=== PATIENT | male | born 1985 | race Caucasian/White ===

== ENCOUNTER → 2020-04-22 11:00 | Outpatient (CLI) | payer OTHER, SELFPAY ==
--- NOTE | ~2020-04-22 | XR_ITS ---
EXAMINATION: XR chest 2V EXAM DATE: 04/22/2020 11:17 INDICATION: R50.9 - Fever, unspecified . TECHNIQUE: Frontal and lateral projections of the chest obtained and reviewed. There is no prior eleuterio dy for comparison. FINDINGS: The lungs are clear. There are no pleural effusions. The cardiomediastinal silhouette is within normal limits. There is no pneumothorax suspected. The bones and soft tissues are unremarkab le. IMPRESSION: Normal chest x-ray exam. Reviewed, dictated and finalized at location B. BOX SPOTTER IMPRESSION: Normal chest x-ray exam.
== END ==
PROVIDERS: PCP Family Medicine; Visit Provider Family Medicine
DX: R50.9 Fever, unspecified (principal)
CPT/HCPCS: 71046

== ENCOUNTER → 2021-01-14 09:06 | Outpatient (CLI) | payer OTHER, SELFPAY ==
--- NOTE | ~2021-01-14 | XR_ITS ---
EXAMINATION: XR elbow LT min 3V DATE: 01/14/2021 09:20 INDICATION: Left elbow pain TECHNIQUE: Anteroposterior, two oblique and lateral views of the left elbow were obtained. COMPARISON: None. FINDINGS: Alignment is normal. No fracture or joint effusion. Joint spaces are normal. Soft tissues are unremar kable. IMPRESSION: 1. Negative left elbow radiographs. Reviewed, dictated and finalized at location A.
== END ==
PROVIDERS: PCP Family Medicine; Visit Provider Nurse Practitioner Family
DX: M25.522 Pain in left elbow (principal)
CPT/HCPCS: 73080

== ENCOUNTER → 2021-09-02 13:31 | Outpatient (CLI) | payer OTHER, SELFPAY ==
--- NOTE | ~2021-09-02 | XR_ITS ---
EXAMINATION: XR chest 2V 09/02/2021 13:40 INDICATION: Tobacco use. PROCEDURE: 2 view chest COMPARISON: 04/22/2020 FINDINGS: The lungs are clear. The cardiomediastinal silhouette is within normal limits. There are no pleural effusions. There is no pneumothorax suspected. The lungs are hyperinflated which is cons istent with, but not diagnostic of chronic obstructive pulmonary disease. IMPRESSION: 1: NO ACUTE CARDIOPULMONARY DISEASE. Reviewed, dictated and finalized at location B.
== END ==
PROVIDERS: PCP Family Medicine; Visit Provider Physician Assistant Medical
DX: Z72.0 Tobacco use (principal)
CPT/HCPCS: 71046

== ENCOUNTER 2021-10-08 08:06 | Outpatient (CLI) | payer OTHER, SELFPAY ==
--- NOTE | 2021-10-13 20:06 | WPDPFTINT ---
PFT Procedure Performed PFT Procedure Performed Spirometry with Pre/Post Bronchodilator Plethysmography (Lung Vol) Diffusing Cap (DLCO) Flow Vol Loop PFT Interpretation DOS: 10/08/2021 REQUESTING: ETHEL Ascencio REASON FOR TESTING: Other specified symptoms involving respiratory; dyspnea on exertion PULMONARY FUNCTION TESTS Results are not reliable for the lung volumes as the patient was not able to perform the maneuver correctly after 6 attempts. Spirometry: Pre-bronchodilator FEV1 is 104%, 4.51 L, normal. FVC is 116%, 6.18 L, normal. FEV1/FVC ratio is 73%, normal. After bronchodilator administration there is a non statistically significant change. Lung volumes: Total lung capacity is 82% predicted, 5.68 L, normal. Functional reserve capacity is 65% predicted, 2.24 L, normal. Inspiratory apacity is 100%, normal. Residual volume is not reportable due to in ability for patient to perform testing. Diffusion: DLCO is 104%, normal. Flow volume loop: Nonspecific artifact in the flow volume loop that is noted on 4 of 5 attempts. Trial number 2 is normal. IMPRESSION: Normal spirometry without airflow obstruction, normal total lung capacity which excludes restriction, and normal diffusion. The patient was not able to perform maneuver to obtain ERV and RV. RV is used to determine if air trapping is present. Without airflow obstruction or hyperinflation, air trapping is unlikely to be present. Clinical correlation is recommended. Kristine Driver MD
== END 2021-10-08 08:07 | disposition home or self-care (01) ==
PROVIDERS: PCP Family Medicine; Visit Provider Physician Assistant Medical
DX: R09.89 Other specified symptoms and signs involving the circulatory and respiratory systems (principal); Z72.0 Tobacco use
CPT/HCPCS: 94060; 94726; 94729

== ENCOUNTER 2023-03-01 14:44 | Outpatient (CLI) | payer OTHER, SELFPAY ==
--- NOTE | 2023-03-01 14:54 | ECHO_ITS ---
Patient Info Name: Rafa Doran Age: 37 years : 1985 Gender: Male Ht: 71 in Wt: 180 lbs BSA: 2.03 m2 HR: 79 bpm BP: 148 / 107 mmHg Heart Rhythm: Sinus Rhythm Technical Quality: Fair Exam Date: 03/01/2023 3:06 PM Exam Location: [facility] Pulmonary Patient Status: Outpatient Admit Date: 03/01/2023 Staff Ordering Physician: Jaylen Irving NP Etch Operator [employer] W[employer]: Kaur Fischer RDCS Attending Provider: Jaylen Irving NP Referring Physician: Aristides BELTRÁN; Exam Type: CA echo doppler color flow Study Info Indications R06.02 - Shortness of breath Complete two-dimensional, color flow and Doppler transthoracic echocardiogram is performed. Summary 1. Complete two-dimensional, color flow and Doppler transthoracic echocardiogram is performed. 2. Left ventricular chamber dimension is normal. 3. Left ventricular systolic function is normal, estimated at 60-65%. 4. The left ventricular diastolic function is normal. 5. E/e' 7 is not elevated. 6. There is trace mitral valve regurgitation. 7. There is trace tricuspid valve regurgitation. 8. No pulmonary hypertension, estimated pulmonary arterial systolic pressure is 18 mmHg. Left Ventricle E/e' 7 is not elevated. Left ventricular chamber dimension is normal. Left ventricular systolic function is normal, estimated at 60-65%. The left ventricular diastolic function is normal. Right Ventricle Right ventricular systolic function is normal and with normal TAPSE 1.9 cm. Right ventricular chamber dimension is normal. Left Atria Left atrial chamber dimension is normal. Right Atria Right atrial chamber dimension is normal. Aortic Valve The aortic valve is trileaflet. There is no aortic valve stenosis. There is no aortic valve regurgitation. Pulmonic Valve There is no pulmonic regurgitation. Mitral Valve There is no mitral valve stenosis. There is trace mitral valve regurgitation. Tricuspid Valve There is trace tricuspid valve regurgitation. No pulmonary hypertension, estimated pulmonary arterial systolic pressure is 18 mmHg. Pericardium/Pleural There is no pericardial effusion. Inferior Vena Cava Normal inferior vena cava with >50% collapse upon inspiration consistent with normal right atrial pressure, 5 mmHg. Aorta The aortic root size at the sinus of Valsalva is normal. Left Ventricular Outflow Tract Name Value Normal LVOT 2D LVOT Diameter 2.1 cm LVOT Doppler LVOT Peak Gradient 4 mmHg LVOT Mean Gradient 2 mmHg LVOT VTI 17 cm LVOT VTI/AV VTI Ratio 0.8 LVOT Stroke Volume 61 ml LVOT CO 4.6 l/min LVOT CI 2.3 l/min/m2 Pulmonic Valve Name Value Normal RVOT Doppler RVOT Peak Gradient 2 mmHg PV Doppler
== END 2023-03-01 14:45 | disposition home or self-care (01) ==
PROVIDERS: PCP Family Medicine; Visit Provider Nurse Practitioner Family
DX: R06.02 Shortness of breath (principal); R53.83 Other fatigue; Z82.49 Family history of ischemic heart disease and other diseases of the circulatory system
CPT/HCPCS: 93306

== ENCOUNTER 2023-07-05 09:43 | Outpatient (CLI) | payer OTHER, SELFPAY ==
--- NOTE | 2023-07-25 15:27 | WPDSLEEPSTUD ---
Sleep Study Date of Study: 07/05/23 Ordering Provider: Vy Miranda DO Interpreting Physician: Vy Miranda DO Sleep Study Type: Polysomnogram Height: 1.8 m Weight: 81.647 kg Body Mass Index: 25.1 Neck Circumference (inches): 18 [place]: 9 Reason for Sleep Study CPAP Titration 01/08/2004 Optimal pressure of CPAP 15 cm H2O. No baseline study available. WatchPAT HST 09/07/2021: AHI of 3.5 (4% criteria) or 4.3 (3% criteria) with desaturation down to 91%. PSG 10/15/21 : Overall AHI of 18 with desaturation down to 80%. GUTIERREZ of 0.9. Set up with dental appliance. Patient couldn't tolerate the MAD device or CPAP. Interested in Inspire. Sleep History The patient is a 37-year-old male with arthralgia, erectile dysfunction, back pain, history of tobacco use and previous diagnosis of sleep apnea that had a sleep study ordered for evaluation of the Inspire device. The patient denies awakening from sleep short of breath. He frequently awakens at night with heartburn, belching or cough. He frequently snores and is frequently loud enough that others complain. He denies having trouble sleeping when he has a cold. He denies waking up gasping for air throughout the night. He frequently has breathing problems at night observed by himself or others. He denies sweating excessively at night. He denies having heart palpitations or irregular heartbeats during the night. He occasionally falls asleep during the day but never while driving. He constantly has trouble at school or work due to sleepiness. He denies sleep paralysis and hypnagogic/ hypnopompic hallucinations. He denies feeling afraid of going to sleep. He denies having nightmares. He denies remembering his dreams. He occasionally has thoughts racing through his mind. He frequently feels sad or depressed. He rarely has anxiety. He denies having muscular tension. He denies noticing parts of his body jerk. He denies kicking during the night. He rarely has crawling and aching feelings in his legs and denies having leg pain during. He denies grinding his teeth during sleep and denies awakening with morning jaw pain. He denies being bothered by pain during the day and denies being awakened by pain during the night. He denies waking up feeling stiff in the morning. He denies waking up with sore or achy muscles. He denies waking up with pain in the neck, spine and other joints. He goes to bed at 10:00 p.m. on both weekdays and weekends. He can take him 10-30 minutes to fall asleep. He wakes up twice throughout the night to urinate and is able to fall back asleep within 5 minutes. He wakes up at 8:00 a.m. on weekdays and 11:00 a.m. on the weekends. He typically gets a minimum of 8 hours of sleep per night. He will stay in bed for 10 minutes after waking up in the morning if he does not fall back asleep. He currently lives with his and 4 children. He denies consuming any caffeinated beverages within 2 hours of bedtime. He denies engaging in physical exercise before bedtime. He will occasionally read and watch television before falling asleep. He denies taking naps in the afternoon or the evening. He consumes 2-4 caffeinated beverages per day. He quit smoking cigarettes 2 years ago. He denies alcohol and recreational drug use. [facility] Past Medical History Medical History Arthralgia Attention-deficit hyperactivity disorder, unspecified type BMI 25.0-25.9,adult BMI 26.0-26.9,adult BMI 27.0-27.9,adult BMI 28.0-28.9,adult Cervical radiculopathy Chronic fatigue Erectile disorder due to medical condition in male Idiopathic hypersomnia Low serum cortisol level Right low back pain Tobacco abuse Vitamin D deficiency Family History Family History Father Heart disease Lung cancer Mother Brain cancer Lung cancer Sibling No problems noted.
[2023-07-25 15:35] VITALS: BMI 25.1
== END 2023-07-06 07:45 | disposition home or self-care (01) ==
PROVIDERS: PCP Family Medicine; Visit Provider Family Medicine
DX: G47.33 Obstructive sleep apnea (adult) (pediatric) (principal)
CPT/HCPCS: 95810

== ENCOUNTER 2024-10-24 13:31 | Outpatient (CLI) | payer OTHER, SELFPAY ==
--- OUTSIDE RECORDS SUMMARY | 2024-10-24 13:44 | XMS_ITS | Referral Summary ---
Author Organization [facility] Address [address] [place] [address] Care Team Providers Care Bag Turner Name Role Phone Simon Finch MD Primary Care Provider + [phone] Allergies Active Allergy Reactions Criticality Noted Date Comments Azithromycin Anaphylaxis High 07/02/2012 Anaphylaxis Dexamethasone Shortness of breath,Swelling High 04/21 Medications cholecalciferol (VITAMIN D-3) 50,000 unit capsuleIndication s:Vitamin D Deficiency Take 1 capsule (50,000 Units total) by mouth once a week Tuesday 0 Active dextroamphetamine -amphetamine (ADDERALL) 30 mg tabletIndications :Attention-Defici t Hyperactivity Disorder Take 1 tablet (30 mg total) by mouth 2 (two) times a day Active testosterone cypionate, bulk, 100 % powderIndications :hormone replacement Inject 250 mg into the muscle as instructed 2 (two) times a week 0 2 Active tadalafiL (ADCIRCA) 10 mg tabletIndications :Erectile Dysfunction Take 1 tablet (10 mg total) by mouth every morning Active fluticasone propionate (FLONASE) 50 mcg/actuation nasal spray Administer 1 spray into each nostril 2 (two) times a day 1 each 4 Active azelastine (ASTELIN) 137 mcg (0.1 %) nasal spray Administer 1 spray into each nostril 2 (two) times a day Use in each nostril as directed 30 mL 4 Active Active Problems Problem Noted Date Diagnosed Date Nasal valve stenosis 01/13/2024 Deviated nasal septum 01/13/2024 Nasal turbinate hypertrophy 01/13/2024 MIMA (obstructive sleep apnea) 10/13/2023 Arthralgia 05/18/2021 Night sweats 05/18/2021 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 Monthly or less 11/30/2023 Q2: How many drinks containi ng alcohol do you have on a typical day when you are drinking? Patient does not drink Q3: How often do you have si x or more drinks on one occasion? Never 11/30/2023 Personal Safety Answer Date Recorded Have you ever been in or are you currently in a harmful physical or emotional relationship or is someone making you feel afraid or unsafe? 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 Gender Identity Not on file Sexual Orientation Not on file Last Filed Vital Signs Vital Sign Reading Time Taken Comments Blood Pressure 142/92 11/30/2023 10:20 AM CDT Pulse 64 11/30/2023 10:20 AM CDT Temperature 36.8 C (98.2 F) 12/19/2023 9:21 AM CDT Respiratory Rate 14 11/30/2023 10:20 AM CDT Oxygen Saturation 100% 11/30/2023 10:20 AM CDT Inhaled Oxygen Concentration - - Weight 81.6 kg (180 lb) 11/30/2023 9:05 AM CDT Height 177.8 cm (5' 10 ) 11/30/2023 9:05 AM CDT Body Mass Index 25.83 11/30/2023 9:05 AM CDT Plan of Treatment Not on file Procedures Procedure Name Priority Date/Time Associated Diagnosis Comments HEPATITIS C ANTIBODY Routine 05/18/2021 2:10 PM VACUUM METALIZER OPERATOR Chronic fatigue Night sweats from Last 3 Months or Most Recently Relevant to Health Maintenance Results * Hepatitis C antibody (05/18/2021 2:10 PM VACUUM METALIZER OPERATOR) Hep C Ab Nonreactive Nonreactive KELSEY WALTER Comment:Antibodies to HCV no t detected. Does NOT exclude the possibility of recent exposure to HCV. Blood 05/18/2021 2:10 PM VACUUM METALIZER OPERATOR 05/18/2021 5:00 PM VACUUM METALIZER OPERATOR us Lily Barrios NP LAB MICROBIOLOGY - GENERA L ORDERABLES Edited Result - Final KELSEY RODRIGUEZ [facility] Department [place] [address] from Last 3 Months or Most Recently Relevant to Health [place] [address] [employer] Care Teams Bag Turner Relationship Specialty Start Date End Date Simon Finch MD PCP - General Family Medicine 05/08/20
--- OUTSIDE RECORDS SUMMARY | 2024-10-24 13:44 | XMS_ITS | Clinical Summary ---
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 Chronic fatigue 05/30/2020 Immunizations Immunization Administration Dates Next Due Tdap 03/23/2018 Surgical History Surgery Date Site/Laterality Comments SINUS SURGERY 06/20/1986 - 06/19/1987 septoplasty UVULECTOMY TONSILLECTOMY AND ADENOIDECTOMY NASAL SEPTUM SURGERY Medical History Medical History Date Comments Depression Sleep apnea Family History Medical History Relation Name Comments Cancer Father Fred Early Father Fred Heart attack Father Fred Heart disease Father Fred Cancer Mother Lisette Anesthesia problems Neg Hx Relation Name Status Comments Father Fred Mother Lisette Alive Social History Tobacco Use Types Packs/Day Years [...] on file 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 Gender Identity Not on file Sexual Orientation Not on file Obstetrics History Last Filed Vital Signs Vital Sign Reading [...] 11/30/2023 9:05 AM CDT Plan of Treatment Health Maintenance Due Date Last Done Comments Depression Screening 1984 Varicella Vaccines (1 of 2 - 13+ 2-dose series) 1997 Hepatitis B Screening 2002 Regular Well Visit/Exam 18-64 2002 Influenza Vaccine (#1) 2024 DTaP/Tdap/Td Vaccine (2 - Td or Tdap) 03/23/2028 03/23/2018 Hepatitis C Screening Completed 05/18/2021 HPV Vaccines Aged Out No longer eligi ble based on patient's age to complete this topic Pneumococcal vaccine <65 Aged Out No longer eligible based on patient's age to complete this topic Procedures Procedure Name Priority Date/Time Associated Diagnosis Comments HEPATITIS C ANTIBODY Routine 05/18/2021 2:10 PM POLYMER ENGINEER Chronic fatigue Night sweats from Last 3 Months or Most Recently Relevant to Health Maintenance Results * Hepatitis C antibody (05/18/2021 2:10 PM POLYMER ENGINEER) Hep C Ab Nonreactive Nonreactive KELSEY RODRIGUEZ Comment:Antibodies to HCV no t detected. Does NOT exclude the possibility of recent exposure to HCV. Blood 05/18/2021 2:10 PM POLYMER ENGINEER 05/18/2021 5:00 PM POLYMER ENGINEER Lily Barrios NP LAB MICROBIOLOGY - GENERA L ORDERABLES Edited Result - Final KELSEY [facility] Department [place] [address] from Last 3 Months or Most Recently Relevant to Health Maintenance Insurance [employer] [employer] Address: [id number] [place] [address] [place] [address] [employer] [facility] Address: [facility] [address] [place] [address] Care Teams Coding Team Lead Relationship Specialty Start Date End Date Simon Finch MD PCP - General Family Medicine 05/08/20
--- OUTSIDE RECORDS SUMMARY | 2024-10-24 13:44 | XMS_ITS | Encounter Summary ---
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 Gender Identity Not on file Sexual Orientation Not on file documented as of this encounter Plan of Treatment Not on file documented as of this encounter Procedures Procedure Name Priority Date/Time Associated Diagnosis Comments SCAN - RADIOLOGY/IMAGING 04/22/2020 SCAN - LABS 04/22/2020 documented in this encounter Results * SCAN - LABS (04/22/2020) us Provider Scanning Final Result * SCAN - RADIOLOGY/IMAGING (04/22/2020) Anatomical Region Laterality Modality Other us Provider Scanning Final Result documented in this encounter Visit Diagnoses Not on filedocumented in this encounter Care Teams Content Specialist Relationship Specialty Start Date End Date Simon Finch MD PCP - General Family Medicine 05/08/20 documented as of this encounter
--- NOTE | 2024-10-24 14:30 | NEURO_ITS ---
Impression: # Complains of numbness of hands. Non-diabetic. ? # Bilateral moderate Carpal Tunnel Syndrome. ? # No ulnar neuropathy. ? # Needle/EMG exam mildly neurogenic. Nerve Conduction Studies Anti Sensory Summary Table ?Stim Site NR Peak (ms) P-T Amp (?V) Site1 Site2 Delta-P (ms) Dist (cm) Ayden (m/s) Left Median Anti Sensory (2-3nd Digit) Wrist ? 4.5 21.5 Wrist 2-3nd Digit 4.5 14.0 31 Wrist ? 4.5 17.8 Wrist 2-3nd Digit 4.5 14.0 31 Right Median Anti Sensory (2-3nd Digit) Wrist ? 4.5 44.4 Wrist 2-3nd Digit 4.5 14.0 31 Wrist ? 4.7 14.4 Wrist 2-3nd Digit 4.5 14.0 31 Left Radial Anti Sensory (Base 1st Digit) Wrist ? 2.0 34.4 Wrist Base 1st Digit 2.0 0.0 Right Radial Anti Sensory (Base 1st Digit) Wrist ? 2.1 45.3 Wrist Base 1st Digit 2.1 0.0 Left Ulnar Anti Sensory (5th Digit) Wrist ? 2.8 24.2 Wrist 5th Digit 2.8 14.0 50 Right Ulnar Anti Sensory (5th Digit) Wrist ? 2.5 41.1 Wrist 5th Digit 2.5 14.0 56 Motor Summary Table ?Stim Site NR Onset (ms) O-P Amp (mV) Site1 Site2 Delta-0 (ms) Dist (cm) Ayden (m/s) Left Median Motor (Abd Poll Brev) Wrist ? 5.2 4.8 Elbow Wrist 5.5 32.0 58 Elbow ? 10.7 4.7 Right Median Motor (Abd Poll Brev) Wrist ? 5.5 4.5 Elbow Wrist 5.7 31.0 54 Elbow ? 11.2 4.8 Left Ulnar Motor (Abd Dig Minimi) Wrist ? 2.5 6.6 A Elbow Wrist 5.3 31.0 58 A Elbow ? 7.8 5.7 B Elbow Wrist 3.5 20.0 57 B Elbow ? 6.0 4.5 Right Ulnar Motor (Abd Dig Minimi) Wrist ? 2.3 7.2 A Elbow Wrist 5.3 31.0 58 A Elbow ? 7.6 5.9 B Elbow Wrist 4.1 24.0 59 B Elbow ? 6.4 5.1 F Wave Studies ?NR F-Lat (ms) L-R F-Lat (ms) Left Median (Mrkrs) (Abd Poll Brev) ? 30.99 2.05 Right Median (Mrkrs) (Abd Poll Brev) ? 33.04 2.05 Left Ulnar (Mrkrs) (Abd Dig Min) ? 28.75 0.61 Right Ulnar (Mrkrs) (Abd Dig Min) ? 29.36 0.61 EMG ?Side Muscle Nerve Root Ins Act Fibs Amp Dur Recrt Comment Right 1stDorInt Ulnar C8-T1 Nml Nml Nml Nml Nml Right Ext Indicis Radial (Post Int) C7-8 Nml Nml Nml Nml Nml Right Ext Digitorum Radial (Post Int) C7-8 Nml Nml Nml Nml Nml Right BrachioRad Radial C5-6 Nml Nml Nml Nml Nml Right PronatorTeres Median C6-7 Nml Nml Nml Nml Nml Right Abd Poll Brev Median C8-T1 Nml Nml Incr >12ms +1 Right ABD Dig Min Ulnar C8-T1 Nml Nml Nml Nml Nml Right FlexPolLong Median (Ant Int) C7-8 Nml Nml Nml Nml Nml Right Abd Poll Long Radial (Post Int) C7-8 Nml Nml Nml Nml Nml Left 1stDorInt Ulnar C8-T1 Nml Nml Nml Nml Nml Left Ext Indicis Radial (Post Int) C7-8 Nml Nml Nml Nml Nml Left Ext Digitorum Radial (Post Int) C7-8 Nml Nml Nml Nml Nml Left BrachioRad Radial C5-6 Nml Nml Nml Nml Nml Left PronatorTeres Median C6-7 Nml Nml Nml Nml Nml Left Abd Poll Brev Median C8-T1 Nml Nml Incr >12ms +1 Left ABD Dig Min Ulnar C8-T1 Nml Nml Nml Nml Nml Left FlexPolLong Median (Ant Int) C7-8 Nml Nml Nml Nml Nml Left Abd Poll Long Radial (Post Int) C7-8 Nml Nml Nml Nml Nml MTDD
== END 2024-10-24 13:32 | disposition home or self-care (01) ==
LOC: ANHNEURO 13:34
PROVIDERS: PCP Family Medicine; Visit Provider Physician Assistant Medical
DX: R20.0 Anesthesia of skin (principal); R20.2 Paresthesia of skin; G56.03 Carpal tunnel syndrome, bilateral upper limbs
CPT/HCPCS: 95886; 95911